=== PATIENT | male | born 1945 | race African-American/Black ===

== ENCOUNTER → 2018-12-15 | Outpatient (CLI) | payer MEDICARE ==
--- NOTE | 2018-12-15 12:23 | Diagnostic Imaging Report ---
EXAMINATION: Renal ultrasound. CLINICAL HISTORY :Hydronephrosis COMPARISON: <None available.> TECHNIQUE: Grayscale and color Doppler evaluation of the kidneys and bladder was performed in transverse and longitudinal planes. DISCUSSION: RIGHT KIDNEY: The right kidney measures 9 cm in length and shows increased echogenicity. Round, anechoic simple cysts are identified in the interpolar and upper pole measuring 1.7 x 1.7 x 1.5 cm and 1.8 x 1.2 x 1.3 cm, respectively. No solid mass lesion. No hydronephrosis. LEFT KIDNEY: The left kidney measures 12.2 cm in length and shows increased echogenicity. 2 round, anechoic simple cysts are identified in the upper pole measuring 3.8 x 2.9 x 3.2 cm and 2.4 x 1.9 x 1.8 cm.. No overt hydronephrosis. BLADDER: Unremarkable. Right and left ureteral jets are identified. IMPRESSION: No hydronephrosis per clinical query. Bilateral renal cysts. Increased renal cortical echogenicity suggestive of medical renal disease. Signed by: Dr. Jaspreet Banegsa M.D. on 12/15/2018 12:19 PM
== END ==
LOC: US 10:01
PROVIDERS: ATTEND Urology
DX: N13.30 Unspecified hydronephrosis (principal)
CPT/HCPCS: 76770